=== PATIENT | female | born 1950 | race Caucasian/White ===

== ENCOUNTER 2016-10-19 18:42 | Emergency (ER) | payer MEDICARE, MEDICAID ==
[~2016-10-19] VITALS: Ht 167.6 cm; Wt 81.2 kg
[~2016-10-19 18:42] MED LIST: ALPR0.5T72 PO; BSP5T PO; BUSP10TA95 GT; ENAL10TA PO; ESTR1TAB24 PO; FLUT16SP22 INH; HCT25T PO; HYDR-2890 PO; IRB150T PO; LAMO200T14 PO; LORA0.5T PO; MTF500TCR PO; NAPR-248 PO; OMEP20TA2 PO; PARO20TA57 PO; SMV20T PO; SULF1TAB38 PO; TRAM50TA2 PO
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
[2016-10-19 21:15] VITALS: BP 158/83
== END 2016-10-19 21:15 ==
LOC: EDUNIT# 18:42 → ER 18:45
DX: S46.911A Strain of unspecified muscle, fascia and tendon at shoulder and upper arm level, right arm, initial encounter (principal); Z87.39 Personal history of other diseases of the musculoskeletal system and connective tissue; V49.60XA Unspecified car occupant injured in collision with unspecified motor vehicles in traffic accident, initial encounter
CPT/HCPCS: 72125; 73030; 99282

== ENCOUNTER 2017-07-23 14:09 | Outpatient (RCR) | payer MEDICARE, MEDICAID | END 2017-08-22 12:03 | disposition home or self-care (01) | PROVIDERS: ATTEND Orthopaedic Surgery | DX: Z47.1 Aftercare following joint replacement surgery (principal); Z96.651 Presence of right artificial knee joint ==

== ENCOUNTER → 2018-07-15 | Outpatient (CLI) | payer MEDICARE, MEDICAID ==
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
== END ==
LOC: RAD 14:55
PROVIDERS: ATTEND Family Medicine
DX: S89.92XA Unspecified injury of left lower leg, initial encounter (principal); M17.12 Unilateral primary osteoarthritis, left knee; W19.XXXA Unspecified fall, initial encounter
CPT/HCPCS: 73564

== ENCOUNTER → 2018-11-18 | Outpatient (CLI) | payer MEDICARE, MEDICAID ==
--- NOTE | 2018-11-18 17:42 | Diagnostic Imaging Report ---
INDICATION: Fall with back pain and tailbone pain. TIME OF EXAM: 1:38 PM. FINDINGS: The curvature is normal. There is grade 1 spondylolisthesis of L4 on L5. There appears to be a superior endplate fracture of the L1 vertebral body. Age is indeterminate. No definite retropulsion is seen. Generalized degenerative disc and facet disease is seen with variable disc space narrowing and spurring. This appears greatest at the L4-5 and L5-S1 levels. Mild atherosclerotic calcifications in the abdominal aorta are noted. IMPRESSION: Lumbar spondylosis and spondylolisthesis. There is an age-indeterminate compression fracture involving the L1 vertebral body. If there is concern for acuity, MRI could be performed for further evaluation. Dictated by: Dictated on workstation # [id number]
--- NOTE | 2018-11-18 17:43 | Diagnostic Imaging Report ---
INDICATION: Fall with elbow pain. TIME OF EXAM: 1:39 PM TECHNIQUE: 3 views of the sacroiliac joints were obtained. FINDINGS: SI joints show some mild vacuum. There is no sclerosis, erosion or ankylosis. Sacral arcuate lines appear to be intact. The visualized coccyx is unremarkable. No fractures are seen. IMPRESSION: No acute abnormality is detected. Dictated by: Dictated on workstation # [id number]
== END ==
LOC: RAD 12:58
PROVIDERS: ATTEND Family Medicine
DX: S32.010A Wedge compression fracture of first lumbar vertebra, initial encounter for closed fracture (principal); M47.816 Spondylosis without myelopathy or radiculopathy, lumbar region; M43.16 Spondylolisthesis, lumbar region; M53.3 Sacrococcygeal disorders, not elsewhere classified; M25.529 Pain in unspecified elbow; W19.XXXA Unspecified fall, initial encounter
CPT/HCPCS: 72100; 72202

== ENCOUNTER → 2018-11-21 | Outpatient (CLI) | payer MEDICARE, MEDICAID ==
--- NOTE | 2018-11-21 18:06 | Diagnostic Imaging Report ---
INDICATION: Injury to the triceps region of the left upper extremity. FINDINGS: Sonographic interrogation of the posterior aspect of the left upper extremity was performed. There is some fluid collection measuring approximately 4.5 x 1.6 x 1.3 cm which extends to just below the skin surface and into the soft tissues. This appears to extend into fatty tissue. No definite muscular tear is seen by ultrasound. IMPRESSION: There is fluid just below the skin surface identified in the subcutaneous tissues, perhaps from recent injury and resolving hematoma. No definite triceps tear is seen by ultrasound, however, if this continues to be of clinical concern, MRI would be recommended for much better characterization. Dictated by: Dictated on workstation # [id number]
== END ==
LOC: RAD 14:30
PROVIDERS: ATTEND Family Medicine
DX: S49.92XA Unspecified injury of left shoulder and upper arm, initial encounter (principal); M62.89 Other specified disorders of muscle; W19.XXXA Unspecified fall, initial encounter
CPT/HCPCS: 76881

== ENCOUNTER → 2018-12-03 | Outpatient (CLI) | payer MEDICARE, MEDICAID | LOC: RAD 12:35 | PROVIDERS: ATTEND Nurse Practitioner Family | DX: S49.92XA Unspecified injury of left shoulder and upper arm, initial encounter (principal); Z53.8 Procedure and treatment not carried out for other reasons ==

== ENCOUNTER → 2019-12-22 | Outpatient (CLI) | payer MEDICARE, MEDICAID ==
--- NOTE | 2019-12-22 12:55 | Diagnostic Imaging Report ---
INDICATION: Right upper quadrant pain. PROCEDURE: Ultrasound abdomen complete. TECHNIQUE: Multiple real-time grayscale images were obtained of the abdomen in various projections. The liver is normal in size at 15.9 cm. The portal vein is patent and shows normal direction of flow. No discrete liver mass is detected. The gallbladder is surgically absent. No biliary ductal dilatation seen. The partially visualized pancreas is unremarkable. Spleen is normal in size at 9.8 cm. Visualized proximal and mid abdominal aorta is non-aneurysmal. The distal aorta was obscured. IVC appears patent. The kidneys are without calculi or hydronephrosis. There is no ascites. IMPRESSION: 1. Status post cholecystectomy. 2. No significant abnormality is detected. Dictated by: Dictated on workstation # [id number]
== END ==
LOC: CARD 08:40
PROVIDERS: ATTEND Nurse Practitioner Family
DX: R10.11 Right upper quadrant pain (principal); R07.9 Chest pain, unspecified; Z90.49 Acquired absence of other specified parts of digestive tract
CPT/HCPCS: 76700; 93005

== ENCOUNTER → 2019-12-26 | Outpatient (CLI) | payer MEDICARE, MEDICAID ==
--- NOTE | 2019-12-26 13:17 | Diagnostic Imaging Report ---
INDICATION: Chronic neck pain. TIME OF EXAM: 10:06 PM AP, lateral and odontoid views of the cervical spine were obtained. Curvature and alignment is normal. There is multilevel degenerative disc disease with variable disc space narrowing and marginal spurring, greatest at C5-C6 and C6-C7 levels. Prominent anterior osteophytes are noted at the C3-C4 as well as C5-C6 and C6-C7 levels. Prevertebral tissues are normal. No fractures are seen. Odontoid appears intact. IMPRESSION: Cervical spondylosis. No acute bony abnormality is detected. Dictated by: Dictated on workstation # [id number]
--- NOTE | 2019-12-26 13:56 | Diagnostic Imaging Report ---
PROCEDURE: US carotid duplex, bilateral. TECHNIQUE: Multiple real-time grayscale images were obtained over the carotid arteries in various projections, bilaterally. Additional spectral analysis and color Doppler duplex images were also obtained. INDICATION: Hypertension There are no prior studies available for comparison. There is mild hard and soft plaque formation of both carotid bifurcations. Flow velocities failed to show any sign of a hemodynamically significant stenosis of the common or internal carotid arteries. Both vertebral arteries were identified and there was antegrade flow bilaterally. IMPRESSION: There is mild atherosclerosis disease involving both carotid bifurcations. There is no evidence for a hemodynamically significant stenosis of the common or internal carotid arteries however. Parameters based on the consensus panel De Leon-Scale and Doppler ultrasound criteria published March 2003, Radiology, Volume 229. DOPPLER (peak systolic velocity M/S Right Left CCA 0.90 0.86 ICA Proximal 0.70 0.76 ICA Mid 1.07 0.79 ICA Distal 0.85 0.90 RATIO 1.19 1.04 ECA 1.18 1.40 VERT 0.44 0.49 Dictated by: Dictated on workstation # [id number]
== END ==
LOC: RAD 12:45
PROVIDERS: ATTEND Family Medicine
DX: M47.812 Spondylosis without myelopathy or radiculopathy, cervical region (principal); I65.23 Occlusion and stenosis of bilateral carotid arteries; I10 Essential (primary) hypertension; R07.9 Chest pain, unspecified
CPT/HCPCS: 72040; 93880

== ENCOUNTER → 2020-01-22 | Outpatient (CLI) | payer MEDICARE, MEDICAID ==
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
== END ==
LOC: RAD 15:46
PROVIDERS: ATTEND Nurse Practitioner Family
DX: M19.071 Primary osteoarthritis, right ankle and foot (principal); Z87.81 Personal history of (healed) traumatic fracture
CPT/HCPCS: 73610

== ENCOUNTER → 2020-04-07 | Outpatient (CLI) | payer MEDICARE, MEDICAID ==
[~2020-04-07] VITALS: Ht 167 cm; Wt 102.0 kg
[~2020-04-07] MED LIST changes: +REGADENOSON 0.4 MG/5 ML SYR (LEXISCAN) IV ONE
[2020-04-07] MEDS: CATHETER FLUSH 10 ML SYR IV PRN ×2 (08:01→09:11)
[2020-04-07 09:10] VITALS: BP 149/72
--- NOTE | 2020-04-07 14:01 | Cardiology Stress Test Report ---
Stress Test Report Date of Procedure/Referring: Date of Procedure: Apr 07, 2020 PCP Carlita Muniz MD Admitting Physician Cathy Chaney MD Indications: Chest pain Baseline Heart Rate: 70 Baseline Blood Pressure: Blood Pressure Systolic: 149 Blood Pressure Diastolic: 72 Baseline Vitals Vital Signs Date Time Temp Pulse Resp B/P (MAP) Pulse Ox O2 Delivery O2 Flow Rate FiO2 04/07/20 09:10 68 149/72 (97) 96 Room Air Baseline EKG: Baseline EKG: normal sinus rhythm Summary After explaining the procedure to the patient, she signed a consent and then brought to the stress nuclear laboratory. Patient received 0.4 mg Lexiscan for stress test, ECG, heart rate and blood pressure were monitored continuously. Resting and stress dose of radio tracer were injected, imaging was acquired and reviewed in short axis, horizontal long axis and vertical long axis views. TID: 0.89 SSS: 6 SDS: 6 EF: 77 1. Patient tolerated Lexiscan well 2. Reversible ischemia involving the mid to apical anterior wall and anterolateral wall 3. Normal left ventricular size, EF 77 percent CARLITA MUNIZ MD Apr 07, 2020 14:01
== END ==
LOC: CARD 07:30
PROVIDERS: ATTEND Internal Medicine Cardiovascular Disease
DX: R07.9 Chest pain, unspecified (principal); I10 Essential (primary) hypertension; F41.9 Anxiety disorder, unspecified; M06.09 Rheumatoid arthritis without rheumatoid factor, multiple sites
CPT/HCPCS: 78452; 93017; A9502

== ENCOUNTER → 2020-04-12 | Outpatient (CLI) | payer MEDICARE, MEDICAID ==
[~2020-04-12] MED LIST changes: +ALPR0.5T7 PO; +ASPI-1238 PO; +CELE200C PO; +ESTR-44 TD; +FISH1CAP15 PO; +LAMO100T69 PO; +LISI10TA2 PO; +PARO40TA PO; -REGADENOSON 0.4 MG/5 ML SYR (LEXISCAN) IV ONE
[2020-04-12 12:27] LABS: ALANINE AMINOTRANSFERASE 13 U/L (0-55); ALKALINE PHOSPHATASE 96 U/L (40-136); BILIRUBIN,TOTAL 0.4 MG/DL (0.1-1.0); BUN/CREATININE RATIO 27; CALCIUM 8.9 MG/DL (8.5-10.1); CARBON DIOXIDE 25 MMOL/L (21-32); CHLORIDE 107 MMOL/L (98-107); CHOLESTEROL 192 MG/DL (< 200); GFR ESTIMATED > 60; GLUCOSE 108 MG/DL (70-105); HDL CHOLESTEROL 72 MG/DL (40-60); SODIUM 141 MMOL/L (135-145); TOTAL PROTEIN 6.6 GM/DL (6.4-8.2); TRIGLYCERIDES 107 MG/DL (<150); VLDL CHOLESTEROL 21 MG/DL (5-40)
== END ==
LOC: CARD 03-08 10:50
PROVIDERS: ATTEND Internal Medicine Cardiovascular Disease
DX: I35.2 Nonrheumatic aortic (valve) stenosis with insufficiency (principal); I34.0 Nonrheumatic mitral (valve) insufficiency; I10 Essential (primary) hypertension; M06.09 Rheumatoid arthritis without rheumatoid factor, multiple sites; F41.9 Anxiety disorder, unspecified
CPT/HCPCS: 36415; 80053; 80061; 93306

== ENCOUNTER 2020-04-14 08:54 | Day surgery (SDC) | payer MEDICAID, MEDICARE ==
[~2020-04-14] VITALS: Ht 167 cm; Wt 130.0 kg
[2020-04-14] VITALS (10 sets, daily range): BP systolic 121–152; BP diastolic 61–90
[~2020-04-14 08:54] MED LIST changes: -ALPR0.5T7 PO; -ASPI-1238 PO; -CELE200C PO; -ESTR-44 TD; -FISH1CAP15 PO; +HEParin (CATH LAB) 2,000 ML IV ONE; -LAMO100T69 PO; +LIDOCAINE 1% INJ 20 ML 20 ML VIAL ONE; -LISI10TA2 PO; +NS IV 1000 ML 1,000 ML ONE; -PARO40TA PO
[2020-04-14] MEDS ORDERED: NS IV 1000 ML 1,000 ML IV SCH ×2 (09:00→13:15)
--- NOTE | 2020-04-14 09:23 | Diagnostic Imaging Report ---
INDICATION: Preop for heart catheterization. TIME OF EXAM: 9:20 AM. COMPARISON: No prior studies are available for comparison. FINDINGS: The heart size is normal. The pulmonary vascularity is unremarkable. The lungs are clear. No infiltrate, effusion, or pneumothorax is detected. IMPRESSION: No acute cardiopulmonary process is detected. Dictated by: Dictated on workstation # [id number]
[2020-04-14 09:32] LABS: MEAN PLATELET VOLUME 9.3 fL (9.0-12.2); WHITE BLOOD COUNT 6.1 10^3/uL (4.3-11.0)
[2020-04-14 09:44] LABS: INR 0.9 (0.8-1.4); PROTHROMBIN TIME PATIENT 12.9 SEC (12.2-14.7)
[2020-04-14 09:50] LABS: ALANINE AMINOTRANSFERASE 15 U/L (0-55); ALBUMIN 4.2 GM/DL (3.2-4.5); ALKALINE PHOSPHATASE 94 U/L (40-136); BILIRUBIN,TOTAL 0.5 MG/DL (0.1-1.0); BUN/CREATININE RATIO 24; CALCIUM 9.4 MG/DL (8.5-10.1); CARBON DIOXIDE 26 MMOL/L (21-32); CHLORIDE 107 MMOL/L (98-107); CHOLESTEROL 199 MG/DL (< 200); CREATININE SERUM 0.76 MG/DL (0.60-1.30); GFR ESTIMATED > 60; GLUCOSE 109 MG/DL (70-105); HDL CHOLESTEROL 81 MG/DL (40-60); SODIUM 142 MMOL/L (135-145); TOTAL PROTEIN 7.4 GM/DL (6.4-8.2); TRIGLYCERIDES 77 MG/DL (<150); VLDL CHOLESTEROL 15 MG/DL (5-40)
[2020-04-14] MEDS ORDERED: FISH1CAP15 PO (10:03)
[2020-04-14] MEDS ORDERED: ASPI-1238 PO (10:03)
[2020-04-14] MEDS ORDERED: PARO40TA PO (10:03)
[2020-04-14] MEDS ORDERED: LAMO100T69 PO (10:03)
[2020-04-14] MEDS ORDERED: ALPR0.5T7 PO (10:03)
[2020-04-14] MEDS ORDERED: CELE200C PO (10:03)
[2020-04-14] MEDS ORDERED: ESTR-44 TD (10:03)
[2020-04-14] MEDS ORDERED: LISI10TA2 PO (10:03)
--- NOTE | 2020-04-14 10:05 | NUR ---
I SPOKE WITH THE PATIENT AND CALLED [facility] [place] TO COMPLETE THIS MED REC. FILL DATES FROM [facility]: 11/01/2019 ALPRAZOLAM 0.5MG #60 11/01/2019 ESTRADIOL 0.1MG PATCH #24/84DS 02/10/2020 LAMICTAL 100MG #135/90DS 03/17/2020 LISINOPRIL 10MG #90/90DS 03/23/2020 PAXIL 40MG #135/90DS -DIRECTIONS FROM PHARMACY ARE TO TAKES 1 1/2 DAILY, PT TAKES 1 DAILY 04/13/2020 CELEBREX 200MG #90/90DS OTC: ASPIRIN FISH OIL
[2020-04-14] MEDS ORDERED: MIDAZOLAM 5 MG/5 ML (VERSED) VIAL ONE (12:19)
[2020-04-14] MEDS ORDERED: fentaNYL INJECTION 100 MCG/2 ML AMP ONE (12:19)
[2020-04-14] MEDS ORDERED: NITRO DRIP 25000 MCG/D5W 250 ML IV ONE (12:20)
[2020-04-14] MEDS ORDERED: VERAPAMIL 5 MG/2 ML (CALAN) VIAL IV ONE (12:20)
[2020-04-14] MEDS ORDERED: HEParin 1000 UNIT/ML (10ML VIAL) FOR BOLUS ONE (12:20)
--- NOTE | 2020-04-14 13:12 | Cardiac Procedure Note-CS/ASA ---
Pre-Procedure Note Pre-Op Procedure Note H&P Reviewed The H&P was reviewed, patient examined and no changes noted. Date H&P Reviewed: Apr 14, 2020 Time H&P Reviewed: 13:12 Conscious Sedation Pre-Proced Time 13:12 ASA Score 3 For ASA 3 and 4: Consider anesthesia and medical clearance. Also, for patients with a history of failed moderate sedation consider anesthesia. Airway Lungs Heart ASA score ASA 1: a normal healthy patient ASA 2: a patient with a mild systemic disease (mid diabetes, controlled hypertension, obesity x ASA 3: a patient with a severe systemic disease that limits activity (angina, COPD, prior Myocardial infarction) ASA 4: a patient with an incapacitating disease that is a constant threat to life (CHF, renal failure) ASA 5: a moribund patient not expected to survive 24 hrs. (ruptured aneurysm) ASA 6: a declared brain- patient whose organs are being harvested. For emergent operations, add the letter E after the classification Mallampati Classification Grade 3 Sedation Plan Analgesia, Amnesia, Plan communicated to team members, Discussed options with patient/fam, Discussed risks with patient/fam The patient is an appropriate candidate to undergo the planned procedure, sedation, and anesthesia. The patient immediately re-assessed prior to indication. CARLITA CHRISTIANSON MD Apr 14, 2020 1:12 pm
--- NOTE | 2020-04-14 13:13 | Discharge Inst-Post CATH ---
Discharge Inst-CATH/EP Problems Reviewed?: Yes Post Cardiac Cath/EP D/C Inst Follow Up/Plan Appointment with Dr. Muniz's office in 4-6 weeks <b>CARDIAC CATH/EP PROCEDURE DISCHARGE INSTRUCTIONS</b> ACTIVITY * Go Home directly and rest. * Limit activity of the leg (or wrist if it was used) for 7 days including aerobics, swimming, jogging, bicycling, etc. * Restrict stair-climbing for 7 days if possible, if not, climb up with your non-cath leg, then bring together on the same step. * Avoid lifting, pushing, pulling or excessive movement of the affected extremity for 7 days. * Customary sexual activity may be resumed after 2 days-use caution not to use a position that strains or causes pain to the affected extremity. * No driving for 24 hours. * NO SMOKING. * Avoid straining for bowel movements for 7 days. * Gentle walking on level ground is allowed. * Returning to work will depend on the type of procedure and the results. Your doctor will discuss this with you. CALL YOUR DOCTOR FOR ANY OF THE FOLLOWING: *If bleeding from the puncture site occurs- Apply gentle pressure to site with clean cloth and call your doctor or EMS. * If a knot or lump forms under the skin, increases in size, or causes pain. * If bruising appears to be worsening or moving further down your leg instead of disappearing. * Temperature above 101 F. CARE OF YOUR GROIN INCISION; * Bruising or purple discoloration of the skin near the puncture site is common. * You may shower only, no bathtub bathing for 5 days. Be careful to avoid slipping as your leg may feel stiff. * If a closure device was used on your femoral artery, please see the attached guide regarding care of the device and your leg. * Leave dressing on FOR 24 hours. CARE OF YOUR WRIST INCISION; * Bruising or purple discoloration of the skin near the puncture site is common. * You may shower. * DO NOT submerge wrist. * Leave dressing on FOR 24 hours. CARLITA MUNIZ MD Apr 14, 2020 1:13 pm
--- NOTE | 2020-04-14 13:17 | Cardiac Cath Report ---
Cardiac Cath Report Physician (s)/Merchant Mariner (s) Physician CARLITA CHRISTIANSON MD Pre-Procedure Diagnosis Pre-Procedure Diagnosis: chest pain Post-Procedure Note Procedure Start Date: Apr 14, 2020 Name of Procedure: Left heart catheterization Findings/Procedure Note PROCEDURE NOTE: 69-year-old lady with history of hypertension, having chest pain, had an abnormal stress test, scheduled for cardiac catheterization possible PTCA. After explaining the procedure to the patient, all pros and cons were explained, all questions were answered. The patient signed the consent and then she was placed on the cardiac catheterization laboratory. Groin was prepped SL fashion local anesthesia was used. Sheath placed in the right radial artery, Lanse catheter advanced to the left ventricular cavity, pressure was measured, pullback LV to aorta was done, intubated the right coronary artery and the left coronary artery and selective angiogram was done. At the end of the procedure the sheath was removed. Vascular band was used FINDINGS: Hemodynamics LV 149/16 end-diastolic pressure of 16 Aorta 150/75 mean of 109 ANATOMY: Left Main is free of obstructive disease Left Anterior Descending has mild disease nonobstructive disease Left Circumflex has mild disease nonobstructive disease Right Coronory Artery has mild disease nonobstructive disease LV Gram was not done, pressure was measured CONCLUSION: 1. Mild coronary artery disease nonobstructive disease 2. Normal left ventricular end-diastolic pressure DISCUSSION AND RECOMMENDATION: Medical therapy is recommended no intervention is needed Anesthesia Type: Conscious Sedation Estimated blood loss (mL): 5 ml Contrast Amount: 32 ml Total Radiation Dose: 496 mGy Post-Procedure Diagnosis Post-operative diagnosis: Chest pain Coronary artery disease Hypertension Hyperlipidemia CARLITA CHRISTIANSON MD Apr 14, 2020 1:17 pm
== END 2020-04-14 15:45 | disposition home or self-care (01) ==
LOC: CATH 08:54 → SDC 13:16 → CATH 15:45
PROVIDERS: ATTEND Internal Medicine Cardiovascular Disease
DX: I25.10 Atherosclerotic heart disease of native coronary artery without angina pectoris (principal); I10 Essential (primary) hypertension; E78.5 Hyperlipidemia, unspecified
CPT/HCPCS: 71045; 80053; 80061; 85027; 85610; 85730; 87081; 93458; C1894; 36415

== ENCOUNTER → 2020-05-12 | Outpatient (CLI) | payer MEDICARE, MEDICAID ==
[~2020-05-12] MED LIST changes: +ALPR0.5T7 PO; +ASPI-1238 PO; +CELE200C PO; +ESTR-44 TD; +FISH1CAP15 PO; -HEParin (CATH LAB) 2,000 ML IV ONE; +LAMO100T69 PO; -LIDOCAINE 1% INJ 20 ML 20 ML VIAL ONE; +LISI10TA2 PO; -NS IV 1000 ML 1,000 ML ONE; +PARO40TA PO
--- NOTE | 2020-05-12 17:04 | Diagnostic Imaging Report ---
PROCEDURE: MR imaging cervical spine without contrast. TECHNIQUE: Multiplanar, multisequence MR imaging of the cervical spine was performed without contrast. DATE: May 12, 2020. COMPARISON: Cervical spine radiographs December 26, 2019. CT cervical spine October 19, 2016. INDICATION: 69-year-old female, neck pain. Bilateral arm pain and numbness. FINDINGS: There is straightening of the normal cervical lordosis. There is no evidence of a diffuse marrow infiltrating or replacing process. There is moderate to severe disc height loss at C5-C6 with adjacent endplate degenerative related changes. There is moderate disc height loss at C6-C7. No identified cord signal abnormality. C2-C3: There is no disc bulge. The uncovertebral and facet joints are unremarkable. There is no foraminal narrowing. There is no spinal canal stenosis. C3-C4: There is a posterior disc osteophyte complex. There are bilateral uncovertebral and right facet degenerative changes. There is severe right and mild left foraminal narrowing. There is mild to moderate spinal canal stenosis. C4-C5: There is a posterior disc osteophyte complex. The uncovertebral and facet joints are unremarkable. There is moderate to severe left foraminal narrowing. There is severe spinal canal stenosis. C5-C6: There is a posterior disc osteophyte complex. There are right uncovertebral degenerative changes. There is moderate to severe right foraminal narrowing. There is severe spinal canal stenosis. C6-C7: There is a posterior disc osteophyte complex. There are bilateral uncovertebral degenerative changes. There is moderate to severe right and severe left foraminal narrowing. There is moderate spinal canal stenosis. C7-T1: There is no disc bulge. The uncovertebral and facet joints are unremarkable. There is no foraminal narrowing. There is no spinal canal stenosis. IMPRESSION: 1. Multilevel disc, uncovertebral, and facet degenerative changes of the cervical spine as described level by level above. Dictated by: Dictated on workstation # [id number]
== END ==
LOC: RAD 13:59
PROVIDERS: ATTEND Family Medicine
DX: M47.22 Other spondylosis with radiculopathy, cervical region (principal); M48.02 Spinal stenosis, cervical region; M25.78 Osteophyte, vertebrae
CPT/HCPCS: 72141

== ENCOUNTER → 2020-06-24 | Outpatient (CLI) | payer MEDICARE, MEDICAID ==
[~2020-06-24] MED LIST changes: -LISI10TA2 PO; +LISI10TA25 PO
--- NOTE | 2020-06-24 17:33 | Diagnostic Imaging Report ---
CLINICAL INDICATION: Patient with left hip and groin pain. EXAMS: 1.: X-ray of the pelvis AP view and X-ray of the left hip, AP and frog-leg views. 2: X-ray of the sacroiliac joints, 3 views. COMPARISON: X-ray of lumbar spine and sacroiliac joints dated 11/18/2018. FINDINGS: There is no acute fracture or dislocation involving both hips, pelvis, sacrum or sacroiliac regions. There is no significant change in mild sclerosis of the bilateral sacroiliac joints with small spurs seen. There are small spurs involving the bilateral acetabular regions which is not significantly changed in the interim. There is sclerosis and spurring of the symphysis pubis region which is also stable. Lower lumbar spine degenerative spurs are seen. There is enthesopathy of the greater trochanters bilaterally which is not significantly changed. There is slight progression of small spurs involving the left femoral head/neck junction region. IMPRESSION: 1: There is slight progression of degenerative spurs involving the left proximal femoral head/neck junction region. 2: Otherwise stable degenerative disease of both hips and pelvis. Stable sclerosis and spurring of the sacroiliac joints. Dictated by: Dictated on workstation # [id number]
--- NOTE | 2020-06-24 18:16 | Diagnostic Imaging Report ---
CLINICAL INDICATION: Patient with left hip and groin pain. EXAMS: 1: X-ray of the pelvis AP view and X-ray of the left hip, AP and frog-leg views. 2: X-ray of the sacroiliac joints, 3 views. COMPARISON: X-ray of lumbar spine and sacroiliac joints dated 11/18/2018. FINDINGS: There is no acute fracture or dislocation involving both hips, pelvis, sacrum or sacroiliac regions. There is no significant change in mild sclerosis of the bilateral sacroiliac joints with small spurs seen. There are small spurs involving the bilateral acetabular regions which is not significantly changed in the interim. There is sclerosis and spurring of the symphysis pubis region which is also stable. Lower lumbar spine degenerative spurs are seen. There is enthesopathy of the greater trochanters bilaterally which is not significantly changed. There is slight progression of small spurs involving the left femoral head/neck junction region. IMPRESSION: 1: There is slight progression of degenerative spurs involving the left proximal femoral head/neck junction region. Dictated by: Dictated on workstation # [id number]
== END ==
LOC: RAD 16:31
PROVIDERS: ATTEND Family Medicine
DX: M16.12 Unilateral primary osteoarthritis, left hip (principal); M16.11 Unilateral primary osteoarthritis, right hip; M53.3 Sacrococcygeal disorders, not elsewhere classified
CPT/HCPCS: 72202

== ENCOUNTER → 2021-05-25 | Outpatient (CLI) | payer MEDICARE, MEDICAID ==
--- NOTE | 2021-05-26 08:50 | Diagnostic Imaging Report ---
INDICATION: Routine screening. COMPARISON is made with prior mammogram 04/21/2015. 2-D and 3-D bilateral screening mammography was performed with CAD. Scattered fibroglandular densities are identified bilaterally. There are scattered benign-appearing calcifications bilaterally. No mass or malignant appearing microcalcifications are seen. Axillae are unremarkable. IMPRESSION: BI-RADS Category 2 No mammographic features suspicious for malignancy are identified. ACR BI-RADS Category 2: Benign findings. Result letter will be mailed to the patient. Note: At least 10% of breast cancer is not imaged by mammography. Dictated by: Dictated on workstation # [id number]
== END ==
LOC: RAD 15:00
PROVIDERS: ATTEND Family Medicine Sports Medicine
DX: Z12.31 Encounter for screening mammogram for malignant neoplasm of breast (principal)
CPT/HCPCS: 77063; 77067

== ENCOUNTER → 2023-01-16 | Outpatient (CLI) | payer MEDICARE, MEDICAID ==
[~2023-01-16] MED LIST changes: +PARO-135 PO; -PARO40TA PO
--- NOTE | 2023-01-16 16:22 | Diagnostic Imaging Report ---
INDICATION: Postmenopausal state, essential hypertension. COMPARISON: None available. FINDINGS: AP Spine L1-L4: [BMD (g/cm2): 1.369] [T-Score: 1.4] [Z-Score: 2.5] [BMD Previous: NA] [BMD % Change: NA] LT Hip Neck: [BMD (g/cm2): 0.926] [T-Score: -0.8] [Z-Score: 0.6] LT Hip Total: [BMD (g/cm2):0.971] [T-Score:-0.3] [Z-Score: 0.8] [BMD Previous: NA] [BMD % Change: NA] RT Hip Neck: [BMD (g/cm2):0.889] [T-Score:-1.1] [Z-Score:0.3] RT Hip Total: [BMD (g/cm2):0.923] [T-score:-0.7] [Z-Score:0.5] [BMD Previous:NA] [BMD % Change:NA] *Indicates significant change from prior examination based on 95% confidence level. World Health Organization criteria for BMD interpretation classify patients as Normal (T-score at or above -1.0), Osteopenic (T-score between -1.0 and -2.5) or Osteoporotic (T-score at or below -2.5). LIMITATIONS AND MODIFICATION: None. FRACTURE RISK (FRAX SCORE): The ten year probability of (%): Major Osteoporotic Fracture: [18.3] Hip Fracture: [2.3] IMPRESSION: 1. Osteopenia (Low bone mass). 2. Baseline examination. 3. See below National Osteoporosis Foundation guidelines on when to potentially initiate pharmacologic therapy. Based on the National Osteoporosis Foundation Guidelines, pharmacologic treatment should be initiated in any of the following, unless clinical conditions suggest otherwise: * Any patient with prior fragility fracture of the hip or vertebrae. A spine fracture indicates 5X risk for subsequent spine fracture and 2X risk for subsequent hip fracture. * Osteoporosis (T-score <-2.5). * Postmenopausal women and men age 50 and older with low bone mass/osteopenia (T-score between -1.0 and -2.5) by DXA and 10-year major osteoporotic fracture greater than 20% or a 10-year probability of hip fracture greater than 3%. These fracture risks are supplied above in the FRAX score, if applicable. * Clinician judgement and/or patient preferences may indicate treatment for people with 10-year fracture probabilities above or below these levels. Dictated by: Dictated on workstation # [id number]
== END ==
LOC: RAD 14:29
PROVIDERS: ATTEND Nurse Practitioner
DX: M85.80 Other specified disorders of bone density and structure, unspecified site (principal); I10 Essential (primary) hypertension; E55.9 Vitamin D deficiency, unspecified; H81.13 Benign paroxysmal vertigo, bilateral; Z78.0 Asymptomatic menopausal state
CPT/HCPCS: 77080